=== PATIENT | female | born 1970 | race Caucasian/White ===

== ENCOUNTER → 2018-03-03 | Day surgery (SDC) | payer OTHER ==
[~2018-03-03] MED LIST: ASPI81TA82 PO; LACTATED RINGER'S 1000 ML INJ 1,000 ML ONE; PROPOFOL 200 MG/20 ML AMP IV ONE
--- NOTE | 2018-03-03 10:57 | GIPROC ---
[facility] [address] [facility], [address] COLONOSCOPY PROCEDURE REPORT EXAM DATE: 03/03/2018 PATIENT NAME: Ines Del Rio MR #: [id number] BIRTHDATE: 1970 ENDOSCOPIST: Carson Sandoval MD ORDER #: [id number] POWERHOUSE MECH[employer]IC HELPER: Paulina Mcguire RN STATUS: outpatient INDICATIONS: The patient is a 47 yr old female here for a colonoscopy due to high risk patient with personal history of colonic polyps and Goldstein syndrome PROCEDURE PERFORMED: Colonoscopy with biopsy MEDICATIONS: None and Per Anesthesia. PREP QUALITY: excellent ESTIMATED BLOOD LOSS: None CONSENT: The patient understands the risks and benefits of the procedure and understands that these risks include, but are not limited to: sedation, allergic reaction, infection, perforation and/or bleeding. Alternative means of evaluation and treatment include, among others: physical exam, x-rays, and/or surgical intervention. The patient elects to proceed with this endoscopic procedure. medical equipment was checked for proper function. Hand hygiene and appropriate measures for infection prevention was taken. After the risks, benefits and alternatives of the procedure were thoroughly explained, Informed consent was verified, confirmed and timeout was successfully executed by the treatment team. A digital exam revealed no abnormalities of the rectum The EC-[id number] ([id number]) endoscope was introduced through the anus and advanced to the cecum, which was identified by both the appendix and ileocecal valve. The instrument was then slowly withdrawn as the colon was fully examined. COLON FINDINGS: A diminutive smooth sessile polyp was found at the cecum. A polypectomy was performed with cold forceps. The colon mucosa was otherwise normal. Retroflexed views revealed no abnormalities The scope was then completely withdrawn from the patient and the procedure terminated. PROCEDURE WITHDRAWAL TIME:8.0minutes ADVERSE EVENTS: There were no complications. IMPRESSIONS: 1. A diminutive sessile polyp was found at the cecum; polypectomy was performed with cold forceps 2. The colon mucosa was otherwise normal 3. Retroflexed views revealed no abnormalities 4. Revealed no abnormalities of the rectum RECOMMENDATIONS: 1. Await biopsy results. Biopsy results will not be ready for 7-10 days. If you don't hear from us in two weeks, call our office for results. 2. High fiber diet 3. Follow-up: GI Clinic PRN RECALL: Return 1 year Colonoscopy Carson Sandoval MD eSigned: Carson Sandoval MD 03/03/2018 10:56 AM cc:
== END | disposition home or self-care (01) ==
LOC: ESDC 08:03
PROVIDERS: ATTEND Internal Medicine Gastroenterology
DX: Z12.11 Encounter for screening for malignant neoplasm of colon (principal); Z86.010 Personal history of colon polyps; Z15.09 Genetic susceptibility to other malignant neoplasm; D12.0 Benign neoplasm of cecum
CPT/HCPCS: 00812; 45380; 88305; J7120